=== PATIENT | female | born 1985 | race American Indian/Alaskan Native ===

== ENCOUNTER 2020-03-28 21:14 | Emergency (ER) | payer SELFPAY ==
[2020-03-28] MEDS ORDERED: SODIUM CHLORIDE 0.9% 1000 ML 1,000 ML IV ONE (21:22)
[2020-03-28] MEDS ORDERED: NALOXONE 2 MG/2 ML INJ IV ONE (21:24)
--- NOTE | 2020-03-28 21:28 | Emergency Department Report ---
ED Altered Mental Status HPI - General Stated Complaint: OVERDOSE PUI?: No Time Seen by Provider: 03/28/20 21:18 Source: patient, family (friend) Mode of arrival: Stretcher Limitations: Altered Mental Status - History of Present Illness Initial Comments: Sujatha is a 34-year-old female who presents decreased with decreased level of consciousness. Friend brought patient per private auto. He is unsure if she used drugs prior to becoming unresponsive. After resuscitation in the emergency department, Sujatha became awake. She was quite surprised to be in the emergency department. She does not remember receiving treatment in the emergency department although she had received naloxone 4 mg and 2 IVs. Upon arrival she was not arousable to noxious stimuli. She required ventilation with Ambu bag. Patient admitted to using heroin, Roxicodone, Xanax and alcohol today. Complaint: decreased responsiveness -: Sudden, This evening Severity: severe Consistency of Symptoms: constant Context: alcohol abuse, drug abuse Associated Symptoms: denies other symptoms, other (Patient denies any physical complaints prior to using drugs and alcohol) - Related Data Allergies Allergy/AdvReac Type Severity Reaction Status Date / Time No Known Allergies Allergy Unverified 03/28/20 21:22 ED Review of Systems ROS: Stated complaint: OVERDOSE Other details as noted in HPI Comment: All other systems reviewed and negative Constitutional: denies: fever, malaise Respiratory: denies: cough, shortness of breath Gastrointestinal: denies: abdominal pain, nausea, vomiting ED Past Medical Hx - Past Medical History Previous Medical History?: No - Social History Substance Use Type: Alcohol, Heroin, Prescribed ED Physical Exam - General General appearance: alert, in no apparent distress - Head Head exam: Present: atraumatic, normocephalic - Eye Eye exam: Present: normal appearance - ENT ENT exam: Present: mucous membranes moist - Neck Neck exam: Present: normal inspection, full ROM - Respiratory Respiratory exam: Present: normal lung sounds bilaterally. Absent: respiratory distress, wheezes, rales, rhonchi - Cardiovascular Cardiovascular Exam: Present: regular rate, normal rhythm, normal heart sounds. Absent: systolic murmur, diastolic murmur, rubs, gallop - GI/Abdominal GI/Abdominal exam: Present: soft, normal bowel sounds. Absent: distended, tenderness, guarding, rebound - Extremities Exam Extremities exam: Present: normal inspection - Back Exam Back exam: Present: normal inspection - Neurological Exam Neurological exam: Present: alert, oriented X3 - Psychiatric Psychiatric exam: Present: normal affect, normal mood. Absent: homicidal ideation, suicidal ideation - Skin Skin exam: Present: warm, dry, intact, normal color. Absent: rash ED Course Vital Signs 03/28/20 21:22 Temperature 98.4 F Pulse Rate 120 H Respiratory 20 Rate Blood Pressure 146/97 O2 Sat by Pulse 100 Oximetry - Lab Data Lab Results 03/28/20 Range/Units 21:42 Plasma/Serum Alcohol 0.09 H (0-0.07) % - Medical Decision Making Acute respiratory failure due to polysubstance abuse. Patient was obtunded foaming at the mouth agonal respirations. She did not respond to noxious stimuli sternal rub. She required ventilation with Ambu bag. After receiving 2 doses of naloxone 4 mg total she became alert awake. She was able to give her name. She was able to tell the team what she took today. She took heroin, Roxicodone, Xanax and alcohol. Waking up in the emergency department made her quite upset. Due to multiple coingestions, patient was observed for significant period of time. After 3-1/2 hours patient states that she feels fine. She denies chest pain or shortness of breath. She does have anxiety due to the notion of overdose. She is insightful. She denies suicidal homicidal ideation. She is discharged home. Critical Care Time: Yes Critical care time in (mins) excluding proc time.: 40 Critical care attestation.: If time is entered above; I have spent that time in minutes in the direct care of this critically ill patient, excluding procedure time. 40 minutes of critical care time excluding procedures were used in the care of the patient. I discussed treatment plan with the nursing team members at the bedside. I came immediately to the bedside upon patient's arrival, patient needed immediate intervention. She was not protecting her airway. She required ventilation with Ambu bag due to agonal respirations. I was at the bedside for the initial 25 minutes of resuscitation. Patient required multiple interventions and reassessments. ED Disposition Clinical Impression: Acute respiratory failure, Accidental heroin overdose, Polysubstance abuse, Opioid overdose Disposition: DC-01 TO HOME OR SELFCARE Is pt being admited?: No Does the pt Need Aspirin: No Condition: Stable Instructions: Polysubstance Abuse (ED) Referrals: MAGALY SRIVASTAVA MD [Staff Physician] - 3-5 Days
[2020-03-29 02:03] VITALS: BP 122/87
== END 2020-03-29 02:04 | disposition home or self-care (01) ==
LOC: ED 21:14
DX: T40.1X4A Poisoning by heroin, undetermined, initial encounter (principal); J96.00 Acute respiratory failure, unspecified whether with hypoxia or hypercapnia; Y92.89 Other specified places as the place of occurrence of the external cause; F19.10 Other psychoactive substance abuse, uncomplicated
CPT/HCPCS: 36415; 96361; 96374; 99283; J2310; J7030; 80320; G0480